=== PATIENT | female | born 1985 | race Caucasian/White ===

== ENCOUNTER 2016-07-06 18:20 | Emergency (ER) | payer OTHER ==
[2016-07-06 18:57] LABS: BILIRUBIN 1+ mg/dL (NEGATIVE); BLOOD 3+ Ery/uL (NEGATIVE); CLARITY CLOUDY (CLEAR); COLOR RED (YELLOW); GLUCOSE (U) NORMAL (NORMAL); KETONE (U) NEGATIVE (NEGATIVE); LEUKOCYTES TRACE Leu/uL (NEGATIVE); NITRITE NEGATIVE (NEGATIVE); PROTEIN 1+ mg/dL (NEGATIVE); SPECIFIC GRAVITY >=1.030 (1.001-1.030)
[2016-07-06 19:03] LABS: BACTERIA TRACE; MUCOUS MODERATE; URINARY RBC TNTC
[2016-07-06 19:25] LABS: BASOPHIL 1.8 % (0-2); HCT 38.9 % (37.0-47.0); HGB 12.9 g/dl (12.5-16.0); LYMPHOCYTE 40.3 % (15-48); MCH 26.9 pg (25.0-31.0); MCHC 33.2 g/dL (32.0-36.0); MONOCYTE 6.4 % (0-12); MPV 8.9 fL (6.0-9.5); NEUTROPHIL 42.5 % (41-80); PLT 270 K/uL (150-400); RDW 16.4 % (11.5-14.0); WBC 6.5 K/uL (4.0-10.5)
[2016-07-06 19:55] LABS: ALBUMIN 3.8 g/dL (3.5-5.0); BILIRUBIN - TOTAL 0.2 mg/dL (0.1-1.0); CREATININE 0.5 mg/dL (0.5-1.0); GLOBULIN (CALCULATION) 2.9 g/dL (2.2-4.2); POTASSIUM 3.9 mmol/L (3.5-5.1); TOTAL PROTEIN 6.7 g/dL (6.4-8.3)
== END 2016-07-06 20:55 | disposition home or self-care (01) ==
LOC: FER 18:20
PROVIDERS: Emergency Medicine
DX: O03.9 Complete or unspecified spontaneous abortion without complication (principal); F17.210 Nicotine dependence, cigarettes, uncomplicated; Z88.8 Allergy status to other drugs, medicaments and biological substances; Z87.42 Personal history of other diseases of the female genital tract; Z98.51 Tubal ligation status
CPT/HCPCS: 36415; 76817; 80053; 81001; 84702; 85025; 87210

== ENCOUNTER 2021-01-02 07:21 | Emergency (ER) | payer SELFPAY ==
[~2021-01-02 07:21] MED LIST: ACETAMINOPHEN500 M1 PO; AMOXICILLIN500 MG PO; AUGMENTIN 875-1 EACH PO; CLEOCIN300 MG PO; IBUPROFEN800 MG PO; MEDROL 4MG DOSEP4 MG PO; METRONIDAZOLE500 MG PO; OXY-IR 5MG5 MG PO; PERCOCET 5-3251 EACH PO; PHENERGAN25 M1 PO; PREDNISONE 10MG10 MG PO; PROBIOTIC1 EAC2 PO; TESSALON PERLE100 MG PO; VENTOLIN HFA IN18 GM INH; ZANTAC150 MG PO; ZOFRAN4 MG PO
[2021-01-02 09:04] LABS: BASOPHIL 0.6 % (0-2); EOSINOPHIL 3.8 % (0-5); HCT 40.7 % (37.0-47.0); HGB 13.1 g/dl (12.5-16.0); LYMPHOCYTE 25.9 % (15-48); MCH 28.2 pg (25.0-31.0); MCHC 32.2 g/dL (32.0-36.0); MCV 87.7 fL (78.0-100.0); MONOCYTE 6.1 % (0-12); MPV 9.5 fL (6.0-9.5); NEUTROPHIL 63.3 % (41-80); NRBC 0; PLT 230 K/uL (150-400); RBC 4.64 M/uL (4.20-5.40); RDW 14.7 % (11.5-14.0); WBC 6.6 K/uL (4.0-10.5)
[2021-01-02 09:42] LABS: ALBUMIN 3.2 g/dL (3.4-5.0); BILIRUBIN - TOTAL 0.2 mg/dL (0.2-1.0); BUN/CREAT RATIO (CALC) 14.8 RATIO; CREATININE 0.54 mg/dL (0.51-0.95); GLOBULIN (CALCULATION) 3.4 g/dL; POTASSIUM 4.2 mmol/L (3.5-5.1); TOTAL PROTEIN 6.6 g/dL (6.4-8.2)
[2021-01-02 10:02] LABS: BILIRUBIN NEGATIVE (NEGATIVE); BLOOD NEGATIVE Ery/uL (NEGATIVE); CLARITY CLEAR (CLEAR); COLOR YELLOW (YELLOW); GLUCOSE (U) NORMAL (NORMAL); LEUKOCYTES NEGATIVE Leu/uL (NEGATIVE); NITRITE NEGATIVE (NEGATIVE); PROTEIN NEGATIVE (NEGATIVE)
== END 2021-01-02 11:46 | disposition home or self-care (01) ==
LOC: FER 07:21
PROVIDERS: Emergency Medicine
DX: K62.89 Other specified diseases of anus and rectum (principal); F17.200 Nicotine dependence, unspecified, uncomplicated; Z88.1 Allergy status to other antibiotic agents
CPT/HCPCS: 36415; 80053; 81003; 83690; 85025; Q9967

== ENCOUNTER 2021-06-18 09:52 | Emergency (ER) | payer SELFPAY ==
[2021-06-18 11:32] LABS: BILIRUBIN NEGATIVE (NEGATIVE); BLOOD NEGATIVE Ery/uL (NEGATIVE); CLARITY HAZY (CLEAR); COLOR YELLOW (YELLOW); GLUCOSE (U) NORMAL (NORMAL); LEUKOCYTES NEGATIVE Leu/uL (NEGATIVE); NITRITE NEGATIVE (NEGATIVE); PROTEIN NEGATIVE (NEGATIVE); SPECIFIC GRAVITY 1.025 (1.001-1.030); UROBILINOGEN 0.2 mg/dL (0.2-1.0)
[2021-06-18 11:40] LABS: BASOPHIL 0.9 % (0-2); EOSINOPHIL 4.9 % (0-5); LYMPHOCYTE 32.5 % (15-48); MCHC 33.3 g/dL (32.0-36.0); MCV 87.1 fL (78.0-100.0); MONOCYTE 6.6 % (0-12); MPV 9.3 fL (6.0-9.5); NEUTROPHIL 54.8 % (41-80); NRBC 0; PLT 272 K/uL (150-400); RBC 4.82 M/uL (4.20-5.40); WBC 6.9 K/uL (4.0-10.5)
[2021-06-18 11:58] LABS: ALBUMIN 3.6 g/dL (3.4-5.0); BILIRUBIN - TOTAL 0.1 mg/dL (0.2-1.0); BUN/CREAT RATIO (CALC) 12.7 RATIO; CREATININE 0.55 mg/dL (0.51-0.95); GLOBULIN (CALCULATION) 3.3 g/dL; POTASSIUM 4.3 mmol/L (3.5-5.1); TOTAL PROTEIN 6.9 g/dL (6.4-8.2)
[2021-06-18] MEDS ORDERED: BACTROBAN NASAL1 GM (12:44)
== END 2021-06-18 12:44 | disposition home or self-care (01) ==
LOC: FER 09:52
PROVIDERS: Emergency Medicine
DX: R10.31 Right lower quadrant pain (principal); Z88.8 Allergy status to other drugs, medicaments and biological substances; Y04.0XXA Assault by unarmed brawl or fight, initial encounter; Y92.129 Unspecified place in nursing home as the place of occurrence of the external cause; Y99.0 Civilian activity done for income or pay
CPT/HCPCS: 36415; 80053; 81003; 85025; 99284